=== PATIENT | male | born 1940 | race Caucasian/White ===

== ENCOUNTER 2018-12-27 08:23 | Inpatient (IN) | payer MEDICARE ==
[2018-12-27 09:00] LABS: #Eosinphils 0.4 thou/uL (0.0-0.7); #Lymphocytes 1.2 thou/uL (1.20-3.40); #Monocytes 0.7 thou/uL (0.11-0.59); #Neutrophils 5.9 thou/uL (1.40-6.50); %Basophils 0.3 % (0.0-1.0); %Eosinophils 4.7 % (0.0-10.0); %Lymphocytes 14.5 % (21.0-51.0); %Monocytes 8.6 % (0.0-10.0); Mean Corpuscular Volume 90.8 fL (78.0-98.0); Platelet Count 316 thou/uL (130-400); RBC Distribution Width 14.5 % (11.5-14.5); Red Blood Cell (RBC) Count 4.48 mill/uL (4.70-6.10); White Blood Cell (WBC) Count 8.2 thou/uL (4.8-10.8)
[2018-12-27 09:25] LABS: Anion Gap 12 mmol/L (10-20); BUN (Urea Nitrogen) 12 mg/dL (8.4-25.7); Calc. Creatinine Clearance 79 mL/min (70-130); Calcium 9.8 mg/dL (7.8-10.44); Carbon Dioxide 27 mmol/L (23-31); Chloride 102 mmol/L (98-107); Estimated GFR-MDRD 78; Glucose 134 mg/dL (83-110); Potassium 3.7 mmol/L (3.5-5.1); Sodium 137 mmol/L (136-145)
[2018-12-27] MEDS ORDERED: Talc Infusion/Pleuradesis 4 GM BOT I-PLEURAL SCH ×2 (09:30→11:00)
--- NOTE | 2018-12-27 10:10 | RAD ---
2 VIEWS CHEST: Date: 12/27/18 COMPARISON: None. HISTORY: Preoperative patient. FINDINGS: There is a moderate sized pleural effusion on the right with obscuration of the right heart border an d the right hemidiaphragm with blunting of the right costophrenic angle. There is asymmetric hazy inc reased density in the suprahilar region on the left. It is uncertain whether this represents infiltra te or mass lesion. No pneumothorax identified. IMPRESSION: 1. Moderate size right pleural effusion. 2. Focal area of ill-defined opacity in the left suprahilar region measuring up to 3.5 cm. This may be related to infectious pneumonitis or underlying pulmonary mass lesion. Short-term follow-up imagin g following treatment and/or CT examination at this time advised. CODE T. POS: [facility]
[2018-12-27 10:30] LABS: INR-International Normal Ratio 1.1; PTT 35.5 SEC (22.9-36.1); Prothrombin Time 14.4 SEC (12.0-14.7)
[2018-12-27] MEDS ORDERED: Fentanyl 250 MCG/5 ML VIAL ONE (10:38)
[2018-12-27] MEDS ORDERED: Bupivacaine HCl 0.5%/Epinephrine 1:200,000/PF 30 ml Vial ONE (11:57)
[2018-12-27] MEDS ORDERED: Phenylephrine HCL 10 MG/ML VIAL ONE (12:29)
[2018-12-27] MEDS ORDERED: Fentanyl 100 MCG/2 ML VIAL SLOW IVP PRN ×2 (13:12)
[2018-12-27] MEDS ORDERED: Ondansetron PF 4 MG/2 ML Vial IVP PRN (13:12)
[2018-12-27] MEDS ORDERED: Promethazine HCl 25 MG/ML VIAL IM PRN ×2 (13:12→13:40)
[2018-12-27] MEDS ORDERED: HYDROcodone/Acetaminophen 5/325 mg Tablet PO PRN (13:12)
[2018-12-27] MEDS ORDERED: Dextrose 50% Abboject 50 ML SYRINGE SLOW IVP PRN (13:17)
[2018-12-27] MEDS ORDERED: Dextrose 5% in Water 1,000 ML IV PRN (13:17)
[2018-12-27] MEDS ORDERED: HumaLOG 300 UNITS/3 ML VIAL SC PRN (13:17)
[2018-12-27] MEDS ORDERED: PHENYLEPHRINE-NS 100 MCG/ML 10 ML SYRINGE ONE ×2 (13:35→14:07)
[2018-12-27] MEDS ORDERED: Ondansetron HCl/PF 4 MG/2 ML Vial IVP PRN (13:40)
[2018-12-27] MEDS ORDERED: Albumin 5% 500 ML ONE (13:40)
[2018-12-27] MEDS ORDERED: Promethazine HCl 25 MG/ML VIAL SLOW IVP PRN (13:40)
[2018-12-27] MEDS ORDERED: Lidocaine 1% PF 5 ML VIAL ONE (14:07)
[2018-12-27] MEDS ORDERED: Ondansetron PF 4 MG/2 ML Vial ONE (14:07)
[2018-12-27] MEDS ORDERED: PROPOFOL 200 MG/20 ML VIAL ONE (14:07)
[2018-12-27] MEDS ORDERED: Rocuronium Bromide 10 MG/ML (10ML VIAL) ONE (14:07)
[2018-12-27] MEDS ORDERED: Ketorolac Tromethamine 30 MG/ML VIAL ONE ×2 (14:07→22:10)
[2018-12-27] MEDS ORDERED: Glycopyrrolate 0.2 MG/ML 5 ML SYRINGE ONE (14:07)
--- NOTE | 2018-12-27 14:57 | RAD ---
RADIOGRAPH CHEST 1 VIEW: Date: 12/27/18 Time: 1335 HOURS HISTORY: 78-year-old male for follow-up of right pleural effusion. COMPARISON: 12/27/18 at 0902 hours. FINDINGS: The moderate sized right pleural effusion has now been drained. There is a new right basilar pneumoth orax estimated to occupy approximately 25% volume of the right hemithoracic cavity. There is a new la rge bore right-sided chest tube, entering from right lateral base, and ascending such that distal tip overlies the right medial apex. There is atelectasis of the right lower lung zone. The right mid and upper lung zones are clear. With no pulmonary edema. No apical component of pneumothorax is identifi ed. The left suprahilar opacity previously described remains. No cardiomegaly or pulmonary edema. Mil d shift of the heart and trachea minimally to the right. IMPRESSION: 1. New right basilar pneumothorax. 2. Right lower lobe atelectasis. 3. Significant interval decrease in volume of the right pleural effusion, which is currently not vis ible on this single view. 4. Interval placement of large caliber right-sided thoracostomy tube. 5. Left suprahilar upper lobe opacity could be lung cancer or pneumonia. DANIEL [] POS: [facility]
--- NOTE | 2018-12-27 16:07 | OP ---
DATE OF PROCEDURE: 12/27/2018 PROCEDURES PERFORMED: Fiberoptic bronchoscopy, right thoracoscopic pleural biopsy and combined mechanical and talc pleurodesis, multiple intercostal rib blocks. PREOPERATIVE DIAGNOSES: Recurrent right pleural effusion. POSTOPERATIVE DIAGNOSIS: Malignant right pleural effusion. ANESTHESIA: General endotracheal anesthesia. INDICATIONS: The patient is a 78-year-old man with known metastatic prostate cancer, who presented with shortness of breath. He had a left suprahilar mass in his lung and a right pleural effusion. The pleural effusion was tapped, but the cytology was negative. Within the month, the effusion recurred and he is now taken to the operating room for diagnostic and therapeutic drainage. FINDINGS: No endobronchial masses or overt extrinsic compression of the airways noted on bronchoscopy. There was about 2500 mL of blood-tinged pleural fluid aspirated. There appeared to be a little bit of trapping of the lateral tip of the right lower lobe. There was an obvious tumor nodule near the anteromedial costophrenic angle and a second similar size nodule identified subpleural when stripping pleura away. Frozen section examination of the nodule at the costophrenic angle showed a high-grade malignancy most consistent with a non-small cell carcinoma. NARRATIVE REPORT: After informed consent was obtained, the patient was taken to the operating room, placed in supine position on the operating table. After the induction of general anesthesia, the fiberoptic bronchoscope was lubricated, inserted through a swivel device on the endotracheal tube. The jeremy was sharp. The right mainstem bronchus was intubated. The minor jeremy was identified. The upper lobe bronchus was identified, intubated, and examined. All three of the segmental bronchi were widely patent. No endobronchial abnormalities were appreciated. The scope was withdrawn back to the level of the mainstem bronchus and advanced into the bronchus intermedius. The middle lobe and then the lower lobe were each examined to the segmental bronchial level with no abnormalities being appreciated. The scope was then withdrawn back to the level of the jeremy and advanced into the left lung base. The left upper lobe was first examined to the segmental bronchial level and then the lingula was examined to the segmental bronchial level. There were no endobronchial masses, apparent extrinsic compression or blunting of any of the minor jeremy. The lower lobe was then examined to the segmental bronchial level with no abnormalities being appreciated. The scope was withdrawn and the patient's single-lumen endotracheal tube was exchanged for the double-lumen endotracheal tube. I assisted with the positioning of the tube using fiberoptic bronchoscopy. The patient was then turned into the left lateral decubitus position and his right chest was prepped and draped in sterile fashion with single lung ventilation instituted. A longitudinal incision was made about detention between the tip of the scapula and the costal margin laterally. The incision was carried through the subcutaneous tissue with the electrocautery and blunt dissection was used to enter the pleural space. The pleural space was then aspirated of fluid. A thoracoscope port and scope were inserted and a brief examination of the pleura was undertaken. The chest tube exit site was selected anteriorly near the costal margin and through an incision made there and tunneled up over the superior rib margin and somewhat posteriorly. Filmy adhesions were taken down and the pleural space more thoroughly examined, taking advantage of long grasping forceps to manipulate the lung. Fairly good size subpleural nodule was identified at the medial costophrenic angle anteriorly. Blunt dissection was used to elevate that and debrided off the chest wall. It was then extracted through the port site. It was a hard scirrhous nodule quite suspicious for malignancy. Further examination of the chest revealed some scirrhous deposition of material on the lower lobe, particularly at the lateral base where the tip of the lung appeared to be somewhat trapped. There was no distinct nodular studding, however. Pleura was elevated using ring clamps and large swath was stripped away anteriorly toward the apex. A 2nd subpleural nodule was identified and it was also debrided away and extracted to use the specimen. Large swath of pleura were stripped away and then talc was aerosolized into the pleural space. A 36-Yoruba chest tube was positioned posterior apically near the apex and secured to the skin with suture. 0.5% Marcaine with epinephrine was used to perform intercostal rib blocks, three ribs below and three above the port and chest tube sites. Additional Marcaine was infiltrated into the incisions themselves. The lung was reinflated. The thoracoscope port and scope were removed. The port site was closed with 2-0 Vicryl for the muscle and subcutaneous layers and a 4-0 Vicryl subcuticular suture for the skin. The wounds were dressed. The chest tube was connected to close suction drainage and the patient was awakened and extubated in the operating room and taken to the recovery area in stable condition. Job ID: [id number] MTDD
[2018-12-27] MEDS ORDERED: Ketorolac Tromethamine 30 MG/ML VIAL IVP SCH (18:00)
[2018-12-27] MEDS ORDERED: Fentanyl 100 MCG/2 ML VIAL ONE (19:21)
[2018-12-27] MEDS: Ketorolac Tromethamine 30 MG/ML VIAL IVP SCH (22:40)
[2018-12-27 23:03] VITALS: BMI 26.8
[2018-12-27] MEDS: Atenolol 25 MG TAB PO SCH (23:24)
[2018-12-27] MEDS: Sodium Chloride 0.9% 1,000 ML IV SCH (23:26)
[2018-12-27] MEDS: Allopurinol 300 MG TAB PO SCH (23:26)
[2018-12-27] MEDS: Melatonin 3 MG TAB PO SCH (23:29)
[2018-12-28] MEDS: Sodium Chloride 0.9% 1,000 ML IV SCH ×2 (01:26→11:29)
[2018-12-28] MEDS: Ketorolac Tromethamine 30 MG/ML VIAL IVP SCH ×3 (03:49→16:04)
[2018-12-28] MEDS: HYDROcodone/Acetaminophen 5/325 mg Tablet PO PRN (05:13)
[2018-12-28 05:43] LABS: #Eosinphils 0.1 thou/uL (0.0-0.7); #Lymphocytes 0.9 thou/uL (1.20-3.40); #Monocytes 1.1 thou/uL (0.11-0.59); #Neutrophils 7.7 thou/uL (1.40-6.50); %Basophils 0.1 % (0.0-1.0); %Eosinophils 1.4 % (0.0-10.0); %Lymphocytes 9.4 % (21.0-51.0); %Monocytes 11.5 % (0.0-10.0); %Neutrophils 77.7 % (42.0-75.0); Hemoglobin 11.2 g/dL (14.0-18.0); Mean Corpuscular HGB CONC 32.9 g/dL (32.0-36.0); Mean Corpuscular Volume 90.9 fL (78.0-98.0); Mean Platelet Volume 7.2 fL (7.4-10.4); Platelet Count 258 thou/uL (130-400); RBC Distribution Width 14.4 % (11.5-14.5); Red Blood Cell (RBC) Count 3.72 mill/uL (4.70-6.10)
[2018-12-28 06:02] LABS: Anion Gap 12 mmol/L (10-20); BUN (Urea Nitrogen) 11 mg/dL (8.4-25.7); Calc. Creatinine Clearance 91 mL/min (70-130); Calcium 8.4 mg/dL (7.8-10.44); Carbon Dioxide 23 mmol/L (23-31); Chloride 105 mmol/L (98-107); Estimated GFR-MDRD Greater than 90; Glucose 119 mg/dL (83-110); Potassium 4.1 mmol/L (3.5-5.1); Sodium 136 mmol/L (136-145)
--- NOTE | 2018-12-28 08:40 | RAD ---
PORTABLE CHEST: HISTORY: Postop thoracotomy. COMPARISON: 12/27/2018 FINDINGS: A right-sided chest tube is again noted. Opacification in the right lung base, consistent with atele ctasis and/or consolidation. Left suprahilar infiltrate is again noted and was seen yesterday. IMPRESSION: 1. Infiltrate in the left suprahilar region again noted. 2. Opacification in the right lung base, consistent with atelectasis or consolidation. POS: [facility]
[2018-12-28] MEDS ORDERED: Prevnar 13-Val Conj/PF 0.5 ML SYRINGE IM ONE (09:00)
[2018-12-28] MEDS ORDERED: Potassium Chloride 20 MEQ TAB PO SCH (09:00)
[2018-12-28] MEDS: Atenolol 25 MG TAB PO SCH ×2 (09:06→20:10)
[2018-12-28] MEDS: Simvastatin 5 MG TAB PO SCH (09:07)
[2018-12-28] MEDS: Furosemide 20 MG TAB PO SCH (09:07)
[2018-12-28] MEDS: Tamsulosin HCl 0.4 MG CAP PO SCH (09:07)
[2018-12-28] MEDS: Multivit, Therapeutic 1 TAB PO SCH (09:07)
[2018-12-28] MEDS: Enoxaparin Sodium 80 MG/0.8 ML SYRINGE SC SCH ×2 (09:08→20:12)
[2018-12-28] MEDS: DULoxetine 60 MG CAP PO SCH (12:26)
[2018-12-28] MEDS: ENZALUTAMIDE 40 MG PO SCH (12:26)
[2018-12-28] MEDS: Melatonin 3 MG TAB PO SCH (20:10)
[2018-12-28] MEDS: Allopurinol 300 MG TAB PO SCH (20:10)
[2018-12-29] MEDS: HYDROcodone/Acetaminophen 5/325 mg Tablet PO PRN ×2 (01:52→20:29)
[2018-12-29] MEDS: Multivit, Therapeutic 1 TAB PO SCH (05:06)
[2018-12-29] MEDS: Atenolol 25 MG TAB PO SCH ×2 (05:07→20:30)
[2018-12-29] MEDS: Tamsulosin HCl 0.4 MG CAP PO SCH (05:08)
[2018-12-29] MEDS ORDERED: Lidocaine 1% w/Epinephrine 1:100K 20 ML VIAL ONE (06:29)
[2018-12-29] MEDS ORDERED: Fentanyl 100 MCG/2 ML VIAL ONE (06:56)
[2018-12-29] MEDS ORDERED: Propofol 500 MG/50 ML VIAL ONE (06:56)
[2018-12-29] MEDS ORDERED: Heparin 10,000 UNITS/1 ML VIAL ONE (08:19)
[2018-12-29] MEDS ORDERED: Ondansetron HCl/PF 4 MG/2 ML Vial IVP PRN (08:52)
[2018-12-29] MEDS ORDERED: Promethazine HCl 25 MG/ML VIAL SLOW IVP PRN (08:52)
[2018-12-29] MEDS ORDERED: Promethazine HCl 25 MG/ML VIAL IM PRN (08:52)
[2018-12-29] MEDS ORDERED: HYDROmorphone 2 MG/ML VIAL SLOW IVP PRN (08:52)
[2018-12-29] MEDS ORDERED: Non-Formulary Item 1 EACH (Rivaroxaban [Xarelto] 1 TAB) PO SCH (09:00)
--- NOTE | 2018-12-29 10:29 | RAD ---
PORTABLE CHEST: INDICATIONS: Port-A-Cath placement. Follow up chest tube. COMPARISON: 12/28/2018 FINDINGS: A Mediport type catheter has been placed in the right chest. The line overlies the SVC. The right chest tube is unchanged in position. Right basilar opacification is unchanged. Hazy infil trate in the left suprahilar region again noted. IMPRESSION: Port-A-Cath placement appears in adequate position. The chest and lung findings are again noted, as described above, stable from yesterday. POS: [facility]
--- NOTE | 2018-12-29 10:53 | OP ---
DATE OF PROCEDURE: 12/29/2018 PROCEDURE PERFORMED: 7.8-English Port-A-Cath 2 low-profile implantation via right subclavian vein with fluoroscopic guidance. PREOPERATIVE DIAGNOSIS: Malignant right pleural effusion. POSTOPERATIVE DIAGNOSIS: Malignant right pleural effusion. ANESTHESIA: Monitored anesthesia care. INDICATIONS: The patient is a 78-year-old man with known stage IV prostate cancer, who has had a good response to hormonal manipulation based upon PSAs. He presented with shortness of breath and was found to have a left suprahilar lung mass and a right pleural effusion and thoracoscopy to drain his right pleural effusion and perform a pleurodesis nodules most consistent with metastatic non-small cell carcinoma were identified. He has now returned to the operating room for Port-A-Cath implantation for secure IV access for chemo or immunotherapy. FINDINGS: Catheter tip placed deep in the superior vena cava. It aspirated and flushed easily. DESCRIPTION OF PROCEDURE: After informed consent was obtained, the patient was taken to the operating room and placed in supine position on the operating table. He was sedated deeply enough to allow for insertion of nasal and oral airways to support spontaneous breathing. His right upper chest was prepped and draped in sterile fashion. His skin was pinched with a pair of Adson forceps and his sedation appeared to be deep enough to allow for the procedure without the use of local anesthetic upfront. An incision was made sharply parallel and inferior medial to the right deltopectoral groove. The incision was carried through the subcutaneous tissue to the pectoralis with the electrocautery. A subcutaneous port with pocket was then developed with the electrocautery at that level with the patient in Trendelenburg. The right subclavian vein was cannulated with a large-bore needle and a guidewire placed. The needle was removed and intravenous positioning was confirmed by fluoroscopy. The tract was dilated and then sheath placed over the wire retaining the wire the catheter that had been trimmed to rough length was passed through the sheath. The sheath was stripped away. Fluoroscopy was used to position the tip of the catheter low in the superior vena cava. The wire was removed. The catheter was aspirated and flushed, and then clamped at the skin level with a rubber shod clamp. The catheter was trimmed to length and affixed to the nipple on the reservoir. The port reservoir was then tacked to the chest wall within the pocket using silk sutures and a [id number] suture was placed loosely around the catheter at the insertion site to facilitate a hemostatic seal around the catheter. The port was accessed percutaneously. It easily aspirated and flushed. After flushing it. 0.5 mL of 1000 unit/mL heparin was instilled. The incision was closed with deep and superficial layers of 2-0 Vicryl and the skin was closed with a Vicryl subcuticular suture and derma daigle. The patient was awakened and taken to the recovery area in stable condition. Job ID: [id number]
[2018-12-29] MEDS: Enoxaparin Sodium 80 MG/0.8 ML SYRINGE SC SCH (10:56)
[2018-12-29 11:27] LABS: Hemoglobin 10.3 g/dL (14.0-18.0); Platelet Count 256 thou/uL (130-400)
[2018-12-29] MEDS: Furosemide 20 MG TAB PO SCH (12:58)
[2018-12-29] MEDS: DULoxetine 60 MG CAP PO SCH (12:58)
[2018-12-29] MEDS: Simvastatin 5 MG TAB PO SCH (12:58)
[2018-12-29] MEDS: ENZALUTAMIDE 40 MG PO SCH (12:59)
[2018-12-29] MEDS: Rivaroxaban 10 MG TAB PO SCH (18:23)
[2018-12-29] MEDS: Melatonin 3 MG TAB PO SCH (20:30)
[2018-12-29] MEDS: Acetaminophen 500 MG TAB PO SCH (20:31)
[2018-12-29] MEDS: Allopurinol 300 MG TAB PO SCH (20:31)
[2018-12-30 06:29] LABS: Calc. Creatinine Clearance 88 mL/min (70-130); Estimated GFR-MDRD Greater than 90
--- NOTE | 2018-12-30 07:58 | RAD ---
CHEST 1 VIEW: HISTORY: Post pleurodesis. COMPARISON: Radiograph of prior day. FINDINGS: Right thoracostomy tube is similar with the tip projecting in the right lung apex. Central venous ca theter in the right subclavian approach is similar. Layering right effusion. Small volume right hem ithorax subcutaneous emphysema. Mild pulmonary venous congestion. IMPRESSION: Similar examination of the chest. POS: [facility]
[2018-12-30] MEDS: Atenolol 25 MG TAB PO SCH ×2 (09:09→20:41)
[2018-12-30] MEDS: Tamsulosin HCl 0.4 MG CAP PO SCH (09:11)
[2018-12-30] MEDS: Furosemide 20 MG TAB PO SCH (09:11)
[2018-12-30] MEDS: Simvastatin 5 MG TAB PO SCH (09:11)
[2018-12-30] MEDS: Multivit, Therapeutic 1 TAB PO SCH (09:11)
[2018-12-30] MEDS: DULoxetine 60 MG CAP PO SCH (12:36)
[2018-12-30] MEDS: ENZALUTAMIDE 40 MG PO SCH (12:37)
[2018-12-30] MEDS ORDERED: Rivaroxaban 10 MG TAB PO SCH (17:00)
[2018-12-30] MEDS: Rivaroxaban 10 MG TAB PO SCH (18:15)
[2018-12-30] MEDS: Acetaminophen 500 MG TAB PO SCH (20:40)
[2018-12-30] MEDS: Melatonin 3 MG TAB PO SCH (20:41)
[2018-12-30] MEDS: Allopurinol 300 MG TAB PO SCH (20:41)
--- NOTE | 2018-12-31 07:54 | RAD ---
CHEST 1 VIEW: Date: 12/31/18 INDICATION: History of pleurodesis. COMPARISON: Prior exam dated 12/30/18. FINDINGS: Cardiomegaly, pulmonary vascular congestion, and central edema pattern is stable. Right-sided thoraco stomy tube and right chest wall port is stable. No pneumothorax is evident. Small right pleural effus ion persists. IMPRESSION: Stable exam to comparison dated 12/30/18. POS: [facility]
[2018-12-31] MEDS: Atenolol 25 MG TAB PO SCH (08:10)
[2018-12-31] MEDS: Multivit, Therapeutic 1 TAB PO SCH (08:11)
[2018-12-31] MEDS: Simvastatin 5 MG TAB PO SCH (08:11)
[2018-12-31] MEDS: Furosemide 20 MG TAB PO SCH (08:11)
[2018-12-31] MEDS: Tamsulosin HCl 0.4 MG CAP PO SCH (08:12)
--- NOTE | 2018-12-31 12:05 | RAD ---
FFrontal radiograph chest 12/31/2018 at 11:44 AM COMPARISON: 12/31/2018 at 5:11 AM FINDINGS:Right-sided chest tube present on the prior examination has been removed. There is a CT inje ctable portacath on the right, distal tip overlying the region of the cavoatrial junction. Nonspecifi c persistent focal pleural and parenchymal opacity noted in the right lung base. A probable tiny pneumothorax is noted within the right lung apex, projecting between the posterior as pect of the right second and third ribs. A sclerotic focus is noted within the proximal medial right humerus measuring 3.5 cm in transverse di mension. This could be related to metastatic disease in the proper clinical setting. There is a vague opacity in the left suprahilar region, which could potentially reflect an underlying mass lesion. Further assessment via CT suggested. IMPRESSION: Interval removal of right chest tube with probable tiny apical pneumothorax on the right. Vague suprahilar density on the left for which CT examination is advised. This may signify a pulmonar y parenchymal mass lesion. Focal pleural and parenchymal opacity in the right lung base suggesting volume loss or infiltrate wit h small volume residual pleural fluid. Findings suspicious for a sclerotic focus within the proximal right humerus. Dedicated imaging sugges susan. Code T
[2018-12-31] MEDS: DULoxetine 60 MG CAP PO SCH (12:15)
[2018-12-31] MEDS: ENZALUTAMIDE 40 MG PO SCH (12:15)
[2018-12-31 12:19] VITALS: BP 101/53; TEMP 98.4
--- NOTE | 2018-12-31 16:01 | DIS ---
DATE OF ADMISSION: 12/27/2018 DATE OF DISCHARGE: 12/31/2018 PRINCIPAL DIAGNOSIS: Malignant right pleural effusion. PROCEDURES PERFORMED: Right thoracoscopic pleural biopsy with combined mechanical and talc pleurodesis and fiberoptic bronchoscopy 12/27/2018, 7.8-Pakistani low-profile Port-A-Cath 2 implantation via right subclavian vein on 12/29/2018. HISTORY OF PRESENT ILLNESS/HOSPITAL COURSE: The patient is a 78-year-old male with chronic atrial fibrillation and a known diagnosis of metastatic prostate cancer based upon low PSAs and it was felt that his prostate cancer is under good control with hormonal manipulation. He recently presented with shortness of breath and was found to have a right-sided pleural effusion and a left suprahilar lung mass. Cytology on the pleural fluid was negative and the effusion recurred. He was taken to the operating room for diagnostic and therapeutic purposes. Fiberoptic bronchoscopy showed no endobronchial abnormalities or obvious extrinsic compression of the left-sided airways. At thoracoscopy, there was some entrapment of the lateral base of the right lung and there were 2 distinct subpleural nodules that were firm and were consistent with a high-grade malignancy most consistent with a non-small cell carcinoma by frozen section. A combined mechanical and talc pleurodesis was performed and after discussing matters with him, his primary care physician, and his oncologist, he was taken back to the operating room on postoperative day 2 for a Port-A-Cath implantation for anticipated chemotherapy. His chest tube output diminished with 24-hour outputs being less than 100 mL 2 days in a row and the tube was removed. A followup chest x-ray later that day showed no significant problems beyond the baseline of incomplete expansion at the right lateral base. On the day of discharge, I was contacted by the pathologist to notify me of the preliminary path report noting that the findings are now being interpreted as being most consistent with a mesothelioma. The specimen is being sent out to a reference lab for another opinion. Followup with me will be in roughly a couple of weeks hopefully to coordinate with his trip into [facility] to see his oncologist. Job ID: [id number]
== END 2018-12-31 15:30 | disposition home health service (06) | DRG 165 ==
LOC: SURG A 08:23 → 2NO 22:12
PROVIDERS: ADMIT Thoracic Surgery (Cardiothoracic Vascular Surgery); ATTEND Thoracic Surgery (Cardiothoracic Vascular Surgery)
PROC: 0B5N4ZZ Destruction of Right Pleura, Percutaneous Endoscopic Approach (ICD-10-PCS; 2018-12-27)
PROC: 0B9N4ZX Drainage of Right Pleura, Percutaneous Endoscopic Approach, Diagnostic (ICD-10-PCS; 2018-12-27)
PROC: 0JH60WZ Insertion of Totally Implantable Vascular Access Device into Chest Subcutaneous Tissue and Fascia, Open Approach (ICD-10-PCS; principal; 2018-12-29)
PROC: 02HV33Z Insertion of Infusion Device into Superior Vena Cava, Percutaneous Approach (ICD-10-PCS; 2018-12-29)
PROC: B5181ZA Fluoroscopy of Superior Vena Cava using Low Osmolar Contrast, Guidance (ICD-10-PCS; 2018-12-29)
DX: J91.0 Malignant pleural effusion (principal); C61 Malignant neoplasm of prostate
CPT/HCPCS: 36415; 36416; 71045; 71046; 80048; 82565; 85014; 85018; 85025; 85049; 85610; 85730; 88305; 88331; 88341; 88342; 93005; 93010; C1788; J0670; J1642; J1644; J1650; J1885; J2001; J2370; J2405; J2704; J3010; P9045

== ENCOUNTER 2019-01-13 13:14 | Outpatient (CLI) | payer MEDICARE ==
--- NOTE | 2019-01-13 13:49 | RAD ---
EXAM: Chest 2 views: HISTORY: Recurrent right pleural effusion COMPARISON: 12/31/2018 FINDINGS: There is a normal-sized cardiomediastinal silhouette. There is no evidence of consolidation or mass. There is a moderate right pleural effusion with adjacent atelectasis. A Mediport is seen with its tip in the superior vena cava. The bones are unremarkable. IMPRESSION: Moderate right pleural effusion
== END 2019-01-13 13:15 | disposition home or self-care (01) ==
LOC: RAD 13:14
PROVIDERS: ATTEND Thoracic Surgery (Cardiothoracic Vascular Surgery)
DX: J90 Pleural effusion, not elsewhere classified (principal)
CPT/HCPCS: 71046

== ENCOUNTER 2019-04-09 11:23 | Day surgery (SDC) | payer MEDICARE ==
[2019-04-09] MEDS ORDERED: Acetaminophen 500 MG TAB PO PRN (11:57)
[2019-04-09] MEDS ORDERED: diphenhydrAMINE 25 MG CAP PO PRN (11:57)
[2019-04-09 12:17] VITALS: BMI 25.9
[2019-04-09 19:36] VITALS: BP 153/67; TEMP 98.1
[2019-04-09 20:32] LABS: #Eosinphils 0.1 thou/uL (0.0-0.7); #Monocytes 0.9 thou/uL (0.11-0.59); #Neutrophils 5.2 thou/uL (1.40-6.50); %Basophils 0.1 % (0.0-1.0); %Eosinophils 1.1 % (0.0-10.0); %Lymphocytes 14.4 % (21.0-51.0); %Monocytes 12.7 % (0.0-10.0); %Neutrophils 71.7 % (42.0-75.0); Anisocytosis MODERATE=16-30 cells (100X) (0-5/hpf); Hemoglobin 9.8 g/dL (14.0-18.0); MDiff Complete? YES; Mean Corpuscular HGB CONC 33.2 g/dL (32.0-36.0); Mean Corpuscular Hemoglobin 29.9 pg (27.0-31.0); Mean Platelet Volume 7.4 fL (7.4-10.4); Platelet Count 268 thou/uL (130-400); RBC Distribution Width 23.8 % (11.5-14.5); Red Blood Cell (RBC) Count 3.29 mill/uL (4.70-6.10); White Blood Cell (WBC) Count 7.2 thou/uL (4.8-10.8)
== END 2019-04-09 20:00 | disposition home or self-care (01) ==
LOC: SDC 11:23 → 2SW 11:26 → SDC 20:00
PROVIDERS: ATTEND Internal Medicine Hematology & Oncology
PROC: 30233N1 Transfusion of Nonautologous Red Blood Cells into Peripheral Vein, Percutaneous Approach (ICD-10-PCS; principal; 2019-04-09)
DX: D64.9 Anemia, unspecified (principal); Z88.8 Allergy status to other drugs, medicaments and biological substances; Z79.01 Long term (current) use of anticoagulants; Z79.899 Other long term (current) drug therapy
CPT/HCPCS: 36430; 85025; 86850; 86900; 86901; 86920; P9016; 36415; J1642; Q0163